=== PATIENT | male | born 1965 | race Caucasian/White ===

== ENCOUNTER 2021-06-04 08:55 | Emergency (ER) | payer BC, OTHER ==
[~2021-06-04] VITALS: Ht 172.7 cm; Wt 79.4 kg
[~2021-06-04 08:55] MED LIST: CEPH500C2 PO; HYDR-3326 PO; LACT1CAP57 PO
--- NOTE | 2021-06-04 09:11 | NUR ---
at bedside for MSE.
[2021-06-04 09:47] VITALS: BP 120/75
--- NOTE | 2021-06-04 09:50 | NUR ---
Finger Splint applied to L hand, pinky finger. Pt tolerated it. Patient has been cleared for DC by ERMD. Written and verbal after care instructions given. Patient verbalizes understanding of instructions. Stressed follow up or return to ER for worsening s/s. Pt discharged to home in stable condition., ambulated out of ED in steady gait.
== END 2021-06-04 09:51 | disposition home or self-care (01) ==
LOC: ER 08:55
DX: S62.617A Displaced fracture of proximal phalanx of left little finger, initial encounter for closed fracture (principal); V18.4XXA Pedal cycle driver injured in noncollision transport accident in traffic accident, initial encounter; Y93.55 Activity, bike riding; Y92.89 Other specified places as the place of occurrence of the external cause
CPT/HCPCS: 73130; A4663

== ENCOUNTER 2025-05-26 10:23 | Emergency (ER) | payer BC, OTHER ==
[~2025-05-26] VITALS: Ht 172.7 cm; Wt 79.4 kg
[2025-05-26] MEDS ORDERED: LIDOCAINE HCL 1% 20 ML VIAL ONE (10:28)
[2025-05-26] MEDS ORDERED: CEFAZOLIN 1 G VIAL ONE (10:36)
[2025-05-26] MEDS ORDERED: ONDANSETRON 4 MG/2 ML VIAL ONE (10:37)
[2025-05-26] MEDS ORDERED: LIDOCAINE HCL 2% 20 ML VIAL ONE (10:37)
[2025-05-26] MEDS ORDERED: HYDROMORPHONE 1 MG/1 ML DISP.SYRIN ONE (10:37)
[2025-05-26] MEDS: ONDANSETRON 4 MG/2 ML VIAL IV ONE (10:40)
[2025-05-26] MEDS: HYDROMORPHONE 1 MG/1 ML DISP.SYRIN IV ONE (10:40)
[2025-05-26] MEDS: LIDOCAINE HCL 2% 20 ML VIAL TP ONE (10:40)
[2025-05-26] MEDS: CEFAZOLIN 1 G in IV DEXTROSE 5% 50 ML IV ONE (10:47)
[2025-05-26] MEDS ORDERED: NEOMY/BACITRA/POLYMYXIN B OINT UD PACKET TP ONE (11:40)
[2025-05-26] MEDS ORDERED: CEFD300C3 PO (11:49)
[2025-05-26] MEDS ORDERED: HYDR-3980 PO (11:49)
[2025-05-26] MEDS: NEOMY/BACITRA/POLYMYXIN B OINT UD PACKET TP ONE (11:51)
[2025-05-26] MEDS ORDERED: BACITRACIN ZINC OINT 15 GM TUBE ONE (11:54)
[2025-05-26] MEDS: BACITRACIN ZINC OINT 15 GM TUBE TOP ONE (11:55)
[2025-05-26 12:05] VITALS: BP 121/75; O2SAT 99
== END 2025-05-26 12:06 | disposition home or self-care (01) ==
LOC: ER 10:23
DX: S51.812A Laceration without foreign body of left forearm, initial encounter (principal); Z88.7 Allergy status to serum and vaccine; Z87.39 Personal history of other diseases of the musculoskeletal system and connective tissue; Z91.011 Allergy to milk products; W22.8XXA Striking against or struck by other objects, initial encounter; Y93.89 Activity, other specified; Y92.89 Other specified places as the place of occurrence of the external cause; Y99.8 Other external cause status
CPT/HCPCS: 12034; 73100; 96365; 96375; 99284; J0690; J1171; J2405; J3490; A4606; A4663

== ENCOUNTER 2025-06-12 09:11 | Emergency (ER) | payer BC ==
[~2025-06-12] VITALS: Ht 172.7 cm; Wt 79.4 kg
[~2025-06-12 09:11] MED LIST changes: +CEFD300C3 PO; +HYDR-3980 PO
[2025-06-12] MEDS: NEOMY/BACITRA/POLYMYXIN B OINT UD PACKET TP ONE (09:57)
[2025-06-12] MEDS ORDERED: NEOMY/BACITRA/POLYMYXIN B OINT UD PACKET TP ONE (09:58)
[2025-06-12 10:01] VITALS: BP 132/85; TEMP 97.8; O2SAT 98
== END 2025-06-12 10:01 | disposition home or self-care (01) ==
LOC: ER 09:11
DX: S61.512D Laceration without foreign body of left wrist, subsequent encounter (principal); R20.0 Anesthesia of skin; Z48.02 Encounter for removal of sutures; Z88.7 Allergy status to serum and vaccine; Z87.39 Personal history of other diseases of the musculoskeletal system and connective tissue; X58.XXXD Exposure to other specified factors, subsequent encounter
CPT/HCPCS: A4606; A4663